=== PATIENT | female | born 1980 | race Caucasian/White ===

== ENCOUNTER 2018-06-10 09:09 | Emergency (ER) | payer BC ==
[~2018-06-10] VITALS: Ht 167.6 cm; Wt 112.7 kg
[2018-06-10] MEDS ORDERED: PRENCHW PO (09:16)
[2018-06-10] MEDS ORDERED: IRON27TA2 PO (09:16)
[2018-06-10 09:37] LABS: BASO % 0.3 % (0.0-1.0); EOS # 0.2 10^3/uL (0.0-0.50); EOS % 3.3 % (0.0-3.0); HEMATOCRIT 41.5 % (36.0-47.0); HEMOGLOBIN 13.3 g/dl (12.0-15.5); LYMPH # 1.9 10^3/uL (1.5-4.5); LYMPH % 33.4 % (24.0-44.0); MEAN CORPUSCULAR VOLUME 87.4 fl (80.0-96.0); MONO # 0.5 10^3/uL (0.0-0.8); NEUTROPHILS # 3.1 10^3/uL (1.8-7.7); NEUTROPHILS % 53.7 % (36.0-66.0); PLATELET COUNT, AUTOMATED 238 10^3/uL (150-450); RED BLOOD COUNT 4.75 10^6/uL (4.00-5.40); WHITE BLOOD COUNT 5.8 10^3/uL (4.0-10.0)
--- NOTE | 2018-06-10 09:46 | REP ---
AP PORTABLE CHEST: 06/10/2018. Clinical history: Chest pain. Findings: No prior study. Upright portable chest shows lung chavarria well inflated without infiltrate, effusion, atelectasis or mass. No pulmonary nodules. The heart, mediastinal and hilar contours are normal. The aorta is normal in its contour. Airway grossly intact. No widening of the mediastinum. I see no free air under the diaphragm. Visualized bones without any acute finding. Impression: 1. No acute cardiopulmonary change. Electronically Signed by Abraham Nava MD 06/10/2018 09:50 A
[2018-06-10 10:06] LABS: BLOOD UREA NITROGEN 18 MG/DL (7-18); CALCIUM LEVEL 8.6 MG/DL (8.5-10.1); CARBON DIOXIDE LEVEL 21 MEQ/L (21-32); CHLORIDE LEVEL 106 MEQ/L (98-107); CPK CREATINE PHOSPHOKINASE 140 U/L (26-192); GLOMERULAR FILTRATION RATE > 60.0 (>60); GLUCOSE, FASTING 113 MG/DL (70-100); MB/CK RELATIVE INDEX 1.21 (< OR =4); POTASSIUM SERUM 3.8 MEQ/L (3.5-5.1); SODIUM LEVEL 137 MEQ/L (136-145); TROPONIN I 0.02 NG/ML (< 0.10)
[2018-06-10] MEDS ORDERED: ISOVUE-370 76% 100ML VIAL (Q9967) As Ordered ONE (10:11)
[2018-06-10] MEDS ORDERED: ASPIRIN 81 MG CHEW TABLET PO ONE (10:15)
[2018-06-10] MEDS ORDERED: NITROGLYCERIN 0.4 MG SUBL TABLET SL PRN (10:15)
[2018-06-10 10:47] VITALS: BP 145/84
--- NOTE | 2018-06-10 11:11 | REP ---
RIGHT UPPER EXTREMITY DOPPLER VENOUS ULTRASOUND: 06/10/2018. CLINICAL HISTORY: Right arm pain and swelling. Evaluate for DVT. FINDINGS: No prior study. Standard duplex techniques utilized. The jugular and subclavian veins show color filling their entirety with no visible thrombus. Respiratory variation and augmented flow are noted in both. The axillary and brachial veins are fully compressible and showed no thrombus. Color flow is maintained throughout, and there is respiratory variation and augmented flow. Basilic and cephalic veins are seen and also are without thrombus and are fully compressible. IMPRESSION: 1. No evidence of DVT in the right upper extremity. 2. Superficial venous system including the cephalic and basilic veins show no superficial thrombophlebitis. Electronically Signed by Abraham Nava MD 06/10/2018 07:39 P
--- NOTE | 2018-06-10 11:12 | REP ---
RIGHT ELBOW COMPLETE: 06/10/2018. CLINICAL HISTORY: Right elbow pain. FINDINGS: No prior study. Four views are provided. I see no significant swelling at the olecranon or avulsion at the triceps insertion. Radial head and capitellum align normally. No elbow joint effusion. There is no fracture or avulsion. Distal humerus intact. No abnormal soft tissue calcifications about the elbow. IMPRESSION: 1. Negative right elbow series for fracture, joint effusion, avulsion, nor other acute finding. Electronically Signed by Abraham Nava MD 06/10/2018 07:40 P
--- NOTE | 2018-06-10 11:25 | REP ---
CT ANGIOGRAM CHEST: 06/10/2018. Clinical history: Right-sided chest pain. Comparison: Portable chest today. Technique: Bolus of 75 ml Isovue 370 and scanning through the chest with CT angiogram protocol. MIP and standard reformats in coronal and sagittal projections provided. Findings: Lung chavarria show some subtle patchy opacities in the right upper lobe and right mid lung zone involving the superior segment. These are not visible on the portable chest. In addition, there is a 14 mm nodule in the azygoesophageal recess best seen on image 39 of series 402, also not visible radiographically. There is no pleural effusion. I see no dense consolidation with air bronchograms. Left lung clear. The heart is not enlarged. There is no pericardial thickening or effusion. No hiatal hernia. The aorta is without aneurysm or dissection. The main, right and left pulmonary arteries within the mediastinum are without filling defect. There is a 10 mm node at the right hilum near takeoff of the upper lobe pulmonary artery. The lobar, segmental and subsegmental bronchi are without any definite filling defects or vessel cutoff to suggest pulmonary emboli. No axillary or supraclavicular mass. Bone windows show the sternum, manubrium, medial clavicles, small portions of humeral heads, scapulae, ribs and the thoracic spine included to be without fracture, destructive lesion or compression deformity. The upper abdomen shows that portion of liver and spleen included to be unremarkable. Clips from prior cholecystectomy are seen in the gallbladder fossa. No biliary dilatation or ascites seen. Patient with prior gastric bypass evident. There is an anastomotic suture line and Lana-en-Y evident in the left upper quadrant. Adrenal glands, upper poles of kidneys, and that portion of pancreas included were all unremarkable. Impression: 1. There is no CT evidence of pulmonary thromboembolism. 2. There are subtle patchy airspace opacities in right upper lobe suggesting some infiltrate or subsegmental atelectasis. These are not visible radiographically on the portable chest earlier today. In addition, there is a 14 mm solid nodule in the azygoesophageal recess in the superior segment right lower lobe, also not visible radiographically. No effusion, pneumothorax, focal rib or spine lesion or other acute finding in the chest. Will need follow-up/referral for this right lower lobe nodule. 3. One 10 mm node at the right hilum. Electronically Signed by Abraham Nava MD 06/10/2018 07:42 P
[2018-06-10 11:26] LABS: INR 0.97
[2018-06-10 11:27] LABS: PARTIAL THROMBOPLASTIN TIME 27.3 SECONDS (25.4-37.6)
[2018-06-10 13:54] LABS: ALBUMIN 3.7 GM/DL (3.2-5.2); ALT/SGPT 37 U/L (12-78); BILIRUBIN,DIRECT 0.1 MG/DL (0.0-0.2); BILIRUBIN,TOTAL 0.4 MG/DL (0.2-1.0); LIPASE 167 U/L (73-393); TOTAL PROTEIN 7.5 GM/DL (6.4-8.2)
[2018-06-10] MEDS ORDERED: AZITHROMYCIN 250 MG TAB PO ONE (15:45)
[2018-06-10 16:59] LABS: CK-MB VALUE MASS < 1.0 NG/ML (<3.6); CPK CREATINE PHOSPHOKINASE 95 U/L (26-192); MB/CK RELATIVE INDEX 1.05 (< OR =4); TROPONIN I 0.02 NG/ML (< 0.10)
[2018-06-10 17:16] VITALS: BP 130/76
[2018-06-10] MEDS ORDERED: AZIT-12 PO (17:21)
--- NOTE | 2018-06-10 19:35 | ECGEPIP ---
Stationary ECG Study [facility] - ED Test Date: 2018-06-10 Pat Name: MITCH BERGER Department: Room: - Gender: F Personal Consultant: : 1980 Requested By: ELLI Elena Order Number: [id number] Reading MD: Verito Fontenot Measurements Intervals [place] Rate: 77 P: 41 WA: 216 QRS: 70 QRSD: 101 T: 5 QT: 376 QTc: 426 Interpretive Statements SINUS RHYTHM WITH FIRST DEGREE AV BLOCK NO PRIOR FOR COMPARISON Electronically Signed On 06-10-2018 19:35:14 EST by Verito Fontenot
--- NOTE | 2018-06-11 16:30 | ECGEPIP ---
Stationary ECG Study [facility] - ED Test Date: 2018-06-10 Pat Name: MITCH BERGER Department: Room: - Gender: F [employer]: ct : 1980 Requested By: ELLI Elena Order Number: [id number] Reading MD: Verito Fontenot Measurements Intervals [place] Rate: 73 P: 39 PA: 222 QRS: 62 QRSD: 94 T: 14 QT: 401 QTc: 443 Interpretive Statements SINUS RHYTHM WITH SINUS ARRHYTHMIA WITH FIRST DEGREE AV BLOCK SIMILAR 06/10/18 9:27 Electronically Signed On 06-11-2018 16:30:05 EST by Verito Fontenot
--- NOTE | 2018-06-19 18:28 | ED PDOC ---
Post-Departure Follow-Up delmar yeager faxed formal report of ct chest angio for fu.Estelle Sosa MD Jun 19, 2018 18:28
== END 2018-06-10 17:33 | disposition home or self-care (01) ==
LOC: M ED 09:09
DX: R91.1 Solitary pulmonary nodule (principal); R07.9 Chest pain, unspecified; I44.0 Atrioventricular block, first degree; D64.9 Anemia, unspecified; Z98.84 Bariatric surgery status; Z72.0 Tobacco use; Z82.49 Family history of ischemic heart disease and other diseases of the circulatory system; Z79.899 Other long term (current) drug therapy; Z88.1 Allergy status to other antibiotic agents; Z88.2 Allergy status to sulfonamides
CPT/HCPCS: 71045; 71275; 73080; 80048; 80076; 82550; 82553; 83690; 84484; 85025; 85610; 85730; 93005; 93041; 93971; 94760; 99285; Q9967

== ENCOUNTER → 2018-09-06 | Outpatient (CLI) | payer BC ==
[~2018-09-06] MED LIST: AZIT-12 PO; IRON27TA2 PO; PRENCHW PO
--- NOTE | 2018-09-06 19:02 | REP ---
PET/CT: History: Diagnosing lung lesion. Comparisons: Comparison chest CT study June 10, 2018. TECHNIQUE: 63 minutes following the intravenous injection of a 8.70 mCi dose of F-18 FDG, three-dimensional PET scintigraphy is acquired from the skull base to the proximal thighs. Triplanar noncontrast CT scanning is acquired through the same anatomic range for attenuation correction, and image registration with scan parameters optimized to minimize radiation exposure to the patient. PET scintigraphy and CT datasets were fused and displayed on a workstation with multiplanar and projection display capability. PET/CT Findings: The 14 mm nodule identified in the right lower lobe on recent CT study shows mildly hypermetabolic uptake, maximum SUV is 2.57. No other abnormal hypermetabolic uptake is seen. No abnormal albino uptake is seen in the chest. Head and neck soft tissues are unremarkable. In the abdomen and pelvis, normal hepatic, gastrointestinal, and genitourinary FDG accumulation is seen. There is mild misregistration motion artifact in the abdomen and pelvis producing gastrointestinal uptake scintigraphic activity over the liver and the spleen. No abnormal hypermetabolic uptake is seen in the abdomen or pelvis. Impression: The right lower lobe nodule shows mildly hypermetabolic uptake, maximum SUV 2.57. This is nonspecific. Malignancy cannot be excluded. If histologic sampling is not the desired or accomplished, recommend interval follow-up chest CT study. PET scintigraphy is otherwise unremarkable. Electronically Signed by Faraz Santana MD 09/06/2018 07:11 P
== END ==
LOC: M PLARAD 14:25
PROVIDERS: ATTEND Internal Medicine
DX: D38.1 Neoplasm of uncertain behavior of trachea, bronchus and lung (principal)
CPT/HCPCS: 78815; A9552

== ENCOUNTER → 2018-10-17 | Outpatient (CLI) | payer BC ==
[~2018-10-17] MED LIST changes: +BUPR300T34 PO; +COLLAGEN PO; +D-20TAB PO; +FERR325T3 PO; +ISOVUE-370 76% 100ML VIAL (Q9967) As Ordered ONE; +VITA1CAP25 PO
--- NOTE | 2018-10-17 09:04 | REP ---
Clinical: Follow up solitary pulmonary nodule. Technique: Axial contrast enhanced images from the thoracic inlet to the upper abdomen with coronal and sagittal re-formations using 100 ml Isovue 370 intravenous contrast material. Comparison: 06/10/2018. Findings: Round 1.4 cm nodule is again identified in the medial right lower lobe (images [id number]) and unchanged when compared to prior examination. No further pulmonary nodule or mass lesion is appreciated. The previously identified scattered ground-glass opacities suggesting early infiltrates have resolved. No acute area of consolidation, further nodule or mass lesion noted. The previously cyst tested 10 mm nodule adjacent to the right hilum is not visualized on current examination and may have represented lymph node. No pleural effusion. No pneumothorax. Tracheobronchial tree is patent. Mild right hilar adenopathy is nonspecific and minimally improved when compared to prior examination with area of lymph nodes now measuring up to approximately 12 mm maximal diameter. Mediastinum including thoracic aorta, pulmonary vasculature and heart/pericardium are stable and essentially normal. Surrounding musculoskeletal structures are intact without focal osseous abnormality. Limited upper abdomen demonstrates normal bilateral adrenal glands and evidence of prior cholecystectomy along with mild fatty infiltration to the liver. Impression: 1. Rounded 1.4 cm nodule in the medial right lower lobe remains stable. 2. Previously identified subtle patchy infiltrates in the right lung have resolved. Minimal right hilar adenopathy appears slightly improved. 3. No further acute process appreciated. Electronically Signed by Hood Brandon MD 10/17/2018 08:56 A
== END ==
LOC: M RAD 08:18
PROVIDERS: ATTEND Internal Medicine Pulmonary Disease
DX: R91.1 Solitary pulmonary nodule (principal)
CPT/HCPCS: 71260; Q9967

== ENCOUNTER 2018-10-24 07:54 | Day surgery (SDC) | payer BC ==
[~2018-10-24] VITALS: Ht 165.1 cm; Wt 119.3 kg
[~2018-10-24 07:54] MED LIST changes: -ISOVUE-370 76% 100ML VIAL (Q9967) As Ordered ONE; +LR 1,000 ML IV ONE
[2018-10-24 08:31] LABS: URINE PREG TEST NEGATIVE (NEGATIVE)
[2018-10-24] MEDS ORDERED: CETACAINE SPRAY 5GM As Ordered ONE (08:58)
[2018-10-24] MEDS ORDERED: LIDOCAINE VISCOUS 2% SOLN 15ML UDC As Ordered ONE ×2 (08:58→10:26)
[2018-10-24] MEDS ORDERED: EPINEPHrine INJ 1 MG/ML 1ML AMP As Ordered ONE (09:14)
[2018-10-24] MEDS ORDERED: LIDOCAINE 1% SDV INJ 30 ML VIAL As Ordered ONE (09:14)
[2018-10-24] MEDS ORDERED: EPINEPHrine 1MG/10ML SYRINGE 1.5IN As Ordered ONE (09:17)
[2018-10-24] MEDS ORDERED: PROPOFOL 200 MG/20 ML VIAL As Ordered ONE (09:27)
[2018-10-24] MEDS ORDERED: dexameTHASONE 4 MG/ML 1ML VIAL (J1100) As Ordered ONE (09:27)
[2018-10-24] MEDS ORDERED: MIDAZOLAM INJ 2 MG/2 ML VIAL (J2250) As Ordered ONE (09:27)
[2018-10-24] MEDS ORDERED: fentaNYL 100 MCG/2 ML INJECTION (J3010) As Ordered ONE ×2 (09:27→10:06)
[2018-10-24] MEDS ORDERED: ROCURONIUM BROMIDE 50 MG/5 ML VIAL As Ordered ONE (09:27)
[2018-10-24] MEDS ORDERED: LIDOCAINE 2% INJ 100 MG/5 ML SDV (FOR ANES.) As Ordered ONE (09:27)
[2018-10-24] MEDS ORDERED: SUGAMMADEX SODIUM 500 MG/5 ML VIAL (BRIDION) As Ordered ONE (09:27)
[2018-10-24] MEDS ORDERED: ONDANSETRON 4MG/2ML VIAL (J2405) As Ordered ONE (09:27)
[2018-10-24] MEDS ORDERED: LABETALOL HCL 100 MG/20 ML VIAL As Ordered ONE (09:32)
[2018-10-24] MEDS ORDERED: METOCLOPRAMIDE INJ 10MG/2ML VIAL (J2765) IV PRN (10:45)
[2018-10-24] MEDS ORDERED: PROMETHAZINE INJ 25 MG/ML VIAL (J2550) IV PRN (10:45)
[2018-10-24] MEDS ORDERED: LR 1,000 ML IV SCH (10:45)
[2018-10-24] MEDS ORDERED: fentaNYL 100 MCG/2 ML INJECTION (J3010) IV PRN (10:45)
--- NOTE | 2018-10-24 10:52 | REP ---
C-ARM VIEW CHEST: A C-arm view of the chest is performed during bronchoscopy. Bronchoscope is seen overlying the right lung base medially. 2 minutes 49 seconds of fluoroscopy time utilized. Electronically Signed by Yannick Delgado MD 10/24/2018 11:41 A
[2018-10-24 10:55] VITALS: BP 144/90
--- NOTE | 2018-10-24 10:56 | RO ---
DATE OF PROCEDURE: 10/24/2018 PREOPERATIVE DIAGNOSIS: Right lower lobe nodule. POSTOPERATIVE DIAGNOSIS: Right lower lobe nodule. PROCEDURE PERFORMED: Fiberoptic bronchoscopy with transbronchoscopic brushing, washing and biopsy using navigation and transbronchial ultrasound with fluoroscopic guidance. SURGEON: Dr. Jaime Horton HEALTH PRACTICE MANAGER: ANESTHESIA: DESCRIPTION OF PROCEDURE: The patient was seen and the procedure explained to the patient as were all of the possible complications pertaining thereto. A written and informed consent were obtained and placed on the chart. The patient was brought to the operative suite and placed under general anesthetic. When the anesthetic had had sufficient time to take effect, the bronchoscope was placed in through the endotracheal tube and into the trachea. The rose mary was sharp. The airways of the left lung were examined in a subsegmental fashion for any evidence of tumor, ulcer, necrosis, vessel engorgement or mucosal irregularity. Finding none, the bronchoscope was retracted to the level of the rose mary and the right lung examined in a similar fashion with similar findings. There was mild hypertrophy of mucus pits and some hypersecretion of mucus noted. Thereafter, Percepta brushes were obtained of the left and right mainstem bronchus. When sufficient sample had been obtained, a navigational probe was placed in through the working port of the bronchoscope and navigation performed to the nodule identified on CAT scan in the right lower lobe superior segment. Navigation was without difficulty and the working channel was placed 0.4 cm from the lesion. Through the working channel, transbronchoscopic brushes were performed for in room cytology. Thereafter, a radial ultrasound probe was placed in through the working channel and the lesion identified via ultrasound. Multiple biopsies were then obtained of the lesion and packaged for pathology. Thereafter, an additional brush was obtained and bronchial washings of the right lower lobe superior segment. The bronchoscope was retracted. There was no evidence of active bleeding appreciated. The patient's anesthesia was reversed. She tolerated the procedure well, suffered no apparent complication and is being moved to the recovery room at this time.
--- NOTE | 2018-10-24 11:02 | REP ---
PORTABLE CHEST: AP portable view of the chest performed. There is no pneumothorax. Mild right perihilar atelectatic changes are present. The heart is normal in size. Mildly prominent right hilar shadows are again noted, unchanged. IMPRESSION: No pneumothorax status post right bronchoscopy. Electronically Signed by Yannick Delgado MD 10/24/2018 11:42 A
== END 2018-10-24 11:25 | disposition home or self-care (01) ==
LOC: M SDC 07:54
PROVIDERS: ATTEND Internal Medicine Pulmonary Disease
DX: R91.1 Solitary pulmonary nodule (principal); K21.9 Gastro-esophageal reflux disease without esophagitis; D64.9 Anemia, unspecified; Z79.899 Other long term (current) drug therapy; Z88.2 Allergy status to sulfonamides; Z98.84 Bariatric surgery status; Z87.891 Personal history of nicotine dependence
CPT/HCPCS: 31623; 31627; 31628; 31652; 71045; 76000; 84703; 87070; 87077; 87102; 87116; 87205; 87206; 88104; 88305; J1100; J2250; J2405; J3010

== ENCOUNTER → 2018-12-29 | Outpatient (CLI) | payer BC ==
[~2018-12-29] MED LIST changes: -LR 1,000 ML IV ONE
--- NOTE | 2018-12-29 08:24 | REP ---
Clinical: Follow-up pulmonary nodule. Technique: Axial noncontrast images from the thoracic inlet to the upper abdomen with coronal and sagittal re-formations. Comparison: 06/10/2018. Findings: The bilateral lung chavarria are well-aerated and relatively clear with the previously noted patchy infiltrates have incompletely resolved. The 14 mm nodule in the medial right lower lobe approaching the azygoesophageal recess as well as the previously identified 10 mm right hilar lymph node are unchanged in size and now demonstrate subsequent partial calcification suggesting sequelae of prior granulomatous disease and less likely malignancy based on characteristics. No new consolidation, nodule or mass lesion. No effusion. No pneumothorax. Tracheobronchial tree is patent. Surrounding musculoskeletal structures are intact. Limited upper abdomen demonstrates normal bilateral adrenal glands and evidence of prior cholecystectomy. Impression: 1. The previously identified 14 mm nodule in the right lower lobe and 10 mm right hilar lymph node demonstrate elements of calcification most characteristic of benign granulomatous disease. 2. No new acute mediastinal or pleuroparenchymal process appreciated. Electronically Signed by Hood Brandon MD 12/29/2018 08:16 A
== END ==
LOC: M RAD 07:45
PROVIDERS: ATTEND Internal Medicine Pulmonary Disease
DX: R91.1 Solitary pulmonary nodule (principal)

== ENCOUNTER → 2019-02-16 | Outpatient (REF) | payer BC ==
[2019-02-16 17:14] LABS: APPEARANCE, URINE HAZY (CLEAR); BACTERIA, URINE AUTO 1+ (NEGATIVE); BILIRUBIN, URINE AUTO NEGATIVE (NEGATIVE); BLOOD, URINE BLOOD 1+ (NEGATIVE); COLOR, URINE YELLOW (YELLOW); GLUCOSE, URINE (UA) AUTO NEGATIVE (NEGATIVE); KETONE, URINE AUTO NEGATIVE (NEGATIVE); LEUKOCYTE ESTERASE, URINE AUTO NEGATIVE (NEGATIVE); MUCUS, URINE SMALL (NEGATIVE); NITRITE, URINE AUTO POSITIVE (NEGATIVE); PROTEIN, URINE AUTO NEGATIVE (NEGATIVE); RBC, URINE AUTO 0 /HPF (0-3); SPECIFIC GRAVITY URINE AUTO 1.018 (1.002-1.035); SQUAMOUS EPITHELIAL CELL UR AU 1 /HPF (0-6); UROBILINOGEN, URINE AUTO 0.2 mg/dL (0.0-2.0); WBC, URINE AUTO 1 /HPF (0-3)
== END ==
LOC: M LAB REF 16:23
PROVIDERS: ATTEND Nurse Practitioner Women's Health
DX: N39.0 Urinary tract infection, site not specified (principal)

== ENCOUNTER → 2024-11-29 | Outpatient (REF) | payer OTHER ==
[~2024-11-29] MED LIST changes: +3ML25MIS IM; +B-12100010 PO; +BUPR-766 PO; -BUPR300T34 PO; +CEFD300CAP PO; +CYAN100017 INJ
[2024-11-29 17:58] LABS: Trichomonas vaginalis (AMP) NOT DETECTED (NEGATIVE)
[2024-11-29 18:21] LABS: GC DNA AMPLIFICATION NEGATIVE (NEGATIVE)
== END ==
LOC: M LAB REF 16:24
PROVIDERS: ATTEND Nurse Practitioner Family
DX: R30.0 Dysuria (principal)